=== PATIENT | female | born 1955 | race Caucasian/White ===

== ENCOUNTER 2022-09-08 10:24 | Emergency (ER) | payer OTHER ==
[~2022-09-08] VITALS: Ht 154.9 cm; Wt 50.8 kg
[~2022-09-08 10:24] MED LIST: CYCL10 PO; ERYSTE250 PO; ESTR1; HYDACE5 PO; IBUP600 PO; LEVO750 PO; LEVSOD100 PO; LEVSOD125; LOVA40 PO; NAPR550 PO; ONDA4ODT MM; Percocet 5-3251 EACH PO; Prednisone20 MG PO; TRAZ50 PO; Valium5 MG PO
[2022-09-08] MEDS ORDERED: Norco 5-325 Ta1 EACH PO (14:35)
== END 2022-09-08 14:39 | disposition home or self-care (01) ==
LOC: ER 10:24
DX: R91.8 Other nonspecific abnormal finding of lung field (principal); J18.9 Pneumonia, unspecified organism; J44.0 Chronic obstructive pulmonary disease with (acute) lower respiratory infection; J44.9 Chronic obstructive pulmonary disease, unspecified; E03.9 Hypothyroidism, unspecified; F17.210 Nicotine dependence, cigarettes, uncomplicated; Z88.0 Allergy status to penicillin; Z79.890 Hormone replacement therapy; Z79.899 Other long term (current) drug therapy; Z79.52 Long term (current) use of systemic steroids
CPT/HCPCS: 71260; 99282-25; Q9967